=== PATIENT | female | born 1950 | race Caucasian/White ===

== ENCOUNTER 2025-03-31 08:38 | Emergency (ER) | payer MEDICARE ==
[~2025-03-31] VITALS: Ht 160 cm; Wt 80.6 kg
[2025-03-31] MEDS ORDERED: BUPR-766 PO (10:01)
[2025-03-31] MEDS ORDERED: HYDR1CAP25 PO (10:01)
[2025-03-31] MEDS ORDERED: ONDA-83 PO (10:01)
[2025-03-31] MEDS ORDERED: MAGN200T PO (10:01)
[2025-03-31] MEDS ORDERED: FEXO60TA98 PO (10:01)
[2025-03-31] MEDS ORDERED: NEXI20CA PO (10:01)
[2025-03-31] MEDS ORDERED: THERTAB52 PO (10:01)
[2025-03-31] MEDS ORDERED: PRAV20TA78 PO (10:01)
[2025-03-31] MEDS ORDERED: HYDR-3490 PO (10:01)
[2025-03-31] MEDS ORDERED: VITA500065 PO (10:01)
[2025-03-31 10:25] LABS: BASO # 0.1 10^3/uL (0.0-0.2); BASO % 0.6 % (0.0-1.0); EOS # 0.2 10^3/uL (0.0-0.5); EOS % 1.5 % (0.0-3.0); LYMPH # 2.0 10^3/uL (1.5-5.0); LYMPH % 18.7 % (24.0-44.0); MONO # 1.0 10^3/uL (0.0-0.8); MONO % 9.3 % (2.0-8.0); NEUTROPHILS # 7.3 10^3/uL (1.5-8.5); NEUTROPHILS % 69.6 % (36.0-66.0); PLATELET COUNT, AUTOMATED 328 10^3/uL (150-450)
[2025-03-31 10:31] LABS: ERYTHROCYTE SEDIMENTATION RATE 64 mm/hr (0-30)
[2025-03-31 10:54] LABS: C REACTIVE PROTEIN QUANTITATIV 3.42 MG/DL (<1.0)
[2025-03-31 10:55] LABS: ALT/SGPT 20.0 U/L (7.0-40); AST/SGOT 25.0 U/L (<34); CALCIUM LEVEL 9.5 MG/DL (8.3-10.6); CARBON DIOXIDE LEVEL 30.0 MMOL/L (20-31); CHLORIDE LEVEL 101.0 MMOL/L (98-107); CREATININE FOR GFR 1.29 MG/DL (0.55-1.30); GLOMERULAR FILTRATION RATE 43.0 (>39); POTASSIUM SERUM 3.9 MMOL/L (3.5-5.1); SODIUM LEVEL 143.0 MMOL/L (136-145)
[2025-03-31 11:04] VITALS: BP 151/61; TEMP 98.8; O2SAT 96
[2025-03-31] MEDS ORDERED: DOXY100C3 PO (11:16)
[2025-04-03 07:34] LABS: BORRELIA SPECIES DNA NOT DETECTED (NOT DETECT)
== END 2025-03-31 11:29 | disposition home or self-care (01) ==
LOC: M ED 08:38
DX: M54.50 Low back pain, unspecified (principal); I10 Essential (primary) hypertension; Z79.899 Other long term (current) drug therapy; Z79.810 Long term (current) use of selective estrogen receptor modulators (SERMs)